=== PATIENT | male | born 1970 | race Caucasian/White ===

== ENCOUNTER → 2016-08-07 | Outpatient (CLI) | payer BC ==
[~2016-08-07] VITALS: Ht 182.9 cm; Wt 99.8 kg
[~2016-08-07] MED LIST: LIDOCAINE 2% INJ 100 MG/5 ML SDV (FOR ANES.) As Ordered ONE; NS 1,000 ML IV SCH; OMEP40CA2 PO; PROPOFOL 200 MG/20 ML VIAL As Ordered ONE; TELM1TAB12 PO
--- NOTE | 2016-08-07 11:16 | ROOR ---
Patient Name: Jakob Disla Procedure Date: 08/07/2016 10:59 AM Date of : 1970 Age: 46 Room: [facility] Gender: Male Note Status: Finalized Procedure: Upper GI endoscopy + Biopsies Indications: Heartburn, Esophageal reflux symptoms that persist despite appropriate therapy, Esophageal reflux symptoms that recur despite appropriate therapy, Failure to respond to medical treatment Providers: Nick Roberson MD Referring MD: DIOGO MARTINEZ DO Requesting Provider: Medicines: Monitored Anesthesia Care Complications: No immediate complications. Procedure: Pre-Anesthesia Assessment: - The heart rate, respiratory rate, oxygen saturations, blood pressure, adequacy of pulmonary ventilation, and response to care were monitored throughout the procedure. The Endoscope was introduced through the mouth, and advanced to the second part of duodenum. The upper GI endoscopy was accomplished without difficulty. The patient tolerated the procedure well. Findings: The Z-line was irregular and was found 40 cm from the incisors. Multiple biopsies were obtained with cold forceps for evaluation to rule out Mills's Esophagus randomly at the gastroesophageal junction. A medium-sized hiatal hernia was present. No other significant abnormalities were identified in a careful examination of the stomach. The exam of the duodenum was otherwise normal. Impression: - Z-line irregular, 40 cm from the incisors. - Medium-sized hiatal hernia. - Multiple biopsies were obtained at the gastroesophageal junction. - The examination was otherwise normal. Recommendation: - Patient has a contact number available for emergencies. The signs and symptoms of potential delayed complications were discussed with the patient. Return to normal activities tomorrow. Written discharge instructions were provided to the patient. - High fiber diet. - Discharge patient to home. - Continue present medications. - Await pathology results. - Telephone GI clinic for pathology results in 1 week. - Check Portal Online for Path Results.([email or web address]) - Return to referring physician. - The findings and recommendations were discussed with the patient's family. Nick Roberson MD Nick Roberson MD 08/07/2016 11:16:02 AM This report has been signed electronically. Number of Addenda: 0 Note Initiated On: 08/07/2016 10:59 AM Estimated Blood Loss: Estimated blood loss: none.
--- NOTE | 2016-08-07 11:40 | ROOR ---
Patient Name: Jakob Disla Procedure Date: 08/07/2016 11:00 AM Date of : 1970 Age: 46 Room: [facility] Gender: Male Note Status: Finalized Procedure: Colonoscopy to Cecum + Cold Snare Polypectomy + Hemoclip Indications: Colon cancer screening in patient at increased risk: Family history of 1st-degree relative with colon polyps, Colon cancer screening in patient at increased risk: Colorectal cancer in father Providers: Nick Roberson MD Referring MD: DIOGO MARTINEZ DO Requesting Provider: Medicines: Monitored Anesthesia Care Complications: No immediate complications. Procedure: Pre-Anesthesia Assessment: - The heart rate, respiratory rate, oxygen saturations, blood pressure, adequacy of pulmonary ventilation, and response to care were monitored throughout the procedure. The Colonoscope was introduced through the anus and advanced to the cecum, identified by appendiceal orifice and ileocecal valve. The colonoscopy was performed without difficulty. The patient tolerated the procedure well. The quality of the bowel preparation was excellent. Findings: The perianal and digital rectal examinations were normal. Non-bleeding internal hemorrhoids were found during retroflexion. The hemorrhoids were small and Grade I (internal hemorrhoids that do not prolapse). A small polyp was found at 20 cm proximal to the anus. The polyp was sessile. The polyp was removed with a cold snare. Resection and retrieval were complete. A medium polyp was found in the hepatic flexure. The polyp was sessile. The polyp was removed with a cold snare. Resection and retrieval were complete. To prevent bleeding after the polypectomy, one hemostatic clip was successfully placed (MR conditional). There was no bleeding at the end of the procedure. The exam was otherwise without abnormality on direct and retroflexion views. Impression: - Non-bleeding internal hemorrhoids. - One small polyp at 20 cm proximal to the anus, removed with a cold snare. Resected and retrieved. - One medium polyp at the hepatic flexure, removed with a cold snare. Resected and retrieved. Clip (MR conditional) was placed. - The examination was otherwise normal on direct and retroflexion views. - The exam was otherwise normal to the cecum. Recommendation: - Patient has a contact number available for emergencies. The signs and symptoms of potential delayed complications were discussed with the patient. Return to normal activities tomorrow. Written discharge instructions were provided to the patient. - High fiber diet. - Discharge patient to home. - Continue present medications. - Await pathology results. - Telephone GI clinic for pathology results in 1 week. - Repeat colonoscopy in 3 years for surveillance based on pathology results. - Return to referring physician. - The findings and recommendations were discussed with the patient's family. Nick Roberson MD Nick Roberson MD 08/07/2016 11:40:11 AM This report has been signed electronically. Number of Addenda: 0 Note Initiated On: 08/07/2016 11:00 AM Estimated Blood Loss: Estimated blood loss: none.
[2016-08-07 12:00] VITALS: BP 141/97
== END | disposition home or self-care (01) ==
LOC: M OPP 10:19
PROVIDERS: ATTEND Internal Medicine Gastroenterology
DX: Z12.11 Encounter for screening for malignant neoplasm of colon (principal); D12.5 Benign neoplasm of sigmoid colon; D12.3 Benign neoplasm of transverse colon; K64.0 First degree hemorrhoids; Z83.71 Family history of colonic polyps; Z80.0 Family history of malignant neoplasm of digestive organs; R12 Heartburn; K22.8 Other specified diseases of esophagus; K44.9 Diaphragmatic hernia without obstruction or gangrene; I10 Essential (primary) hypertension; R00.8 Other abnormalities of heart beat; M54.9 Dorsalgia, unspecified; Z86.79 Personal history of other diseases of the circulatory system; F17.210 Nicotine dependence, cigarettes, uncomplicated; Z79.899 Other long term (current) drug therapy; Z80.42 Family history of malignant neoplasm of prostate

== ENCOUNTER → 2016-08-18 | Outpatient (REF) | payer BC ==
[~2016-08-18] MED LIST changes: -LIDOCAINE 2% INJ 100 MG/5 ML SDV (FOR ANES.) As Ordered ONE; -NS 1,000 ML IV SCH; -PROPOFOL 200 MG/20 ML VIAL As Ordered ONE
[2016-08-18 18:42] LABS: BASO % 0.4 % (0.0-1.0); EOS # 0.1 K/mm3 (0.0-0.50); EOS % 2.2 % (0.0-3.0); LARGE UNSTAINED CELL # 0.4 K/mm3 (0.0-0.4); LARGE UNSTAINED CELL % 7.1 % (0.0-4.0); LYMPH # 1.9 K/mm3 (1.5-4.5); LYMPH % 28.3 % (24.0-44.0); MEAN CORPUSCULAR HEMOGLOBIN 29.8 pg (27.0-33.0); MEAN CORPUSCULAR HGB CONC 32.5 g/dl (32.0-36.5); MEAN CORPUSCULAR VOLUME 91.8 fl (80.0-96.0); MONO # 0.6 K/mm3 (0.0-0.8); MONO % 10.5 % (0.0-5.0); NEUTROPHILS # 2.8 K/mm3 (1.8-7.7); NEUTROPHILS % 51.6 % (36.0-66.0); PLATELET COUNT, AUTOMATED 275 k/mm3 (150-450); RED CELL DISTRIBUTION WIDTH 12.5 % (11.5-14.5); WHITE BLOOD COUNT 5.4 K/mm3 (4.0-10.0)
[2016-08-18 19:26] LABS: FREE T4 0.92 NG/DL (0.76-1.46)
== END ==
LOC: M SFHCCAPE 06:55
PROVIDERS: ATTEND Physician Assistant
DX: R79.89 Other specified abnormal findings of blood chemistry (principal)

== ENCOUNTER → 2016-12-24 | Outpatient (REF) | payer BC ==
[2016-12-24 19:10] LABS: ALBUMIN 3.8 GM/DL (3.2-5.2); ALBUMIN/GLOBULIN RATIO 1.23 (1.00-1.93); ALKALINE PHOSPHATASE 85 U/L (45-117); ALT/SGPT 31 U/L (12-78); ANION GAP 7 MEQ/L (8-16); AST/SGOT 10 U/L (15-37); BILIRUBIN,TOTAL 0.5 MG/DL (0.2-1.0); BLOOD UREA NITROGEN 20 MG/DL (7-18); CALCIUM LEVEL 9.1 MG/DL (8.5-10.1); CARBON DIOXIDE LEVEL 27 MEQ/L (21-32); CHLORIDE LEVEL 109 MEQ/L (98-107); CHOLESTEROL LEVEL 139 MG/DL (<200); FREE T4 0.86 NG/DL (0.76-1.46); GLOMERULAR FILTRATION RATE > 60.0 (>60); GLUCOSE, FASTING 96 MG/DL (70-105); POTASSIUM SERUM 4.5 MEQ/L (3.5-5.1); SODIUM LEVEL 143 MEQ/L (136-145); TOTAL PROTEIN 6.9 GM/DL (6.4-8.2); TRIGLYCERIDES LEVEL 186 MG/DL (<150)
[2016-12-24 21:10] LABS: ADD MANUAL DIFFER YES; MEAN CORPUSCULAR HEMOGLOBIN 31.9 pg (27.0-33.0); MEAN CORPUSCULAR HGB CONC 34.7 g/dl (32.0-36.5); MEAN CORPUSCULAR VOLUME 91.7 fl (80.0-96.0); PLATELET COUNT, AUTOMATED 277 k/mm3 (150-450); RED CELL DISTRIBUTION WIDTH 12.3 % (11.5-14.5); WHITE BLOOD COUNT 6.4 K/mm3 (4.0-10.0)
[2016-12-24 23:11] LABS: BASOPHILS 1 % (0-4); EOSINOPHILS 1 % (0-5)
== END ==
LOC: M SFHCCAPE 07:18
PROVIDERS: ATTEND Physician Assistant
DX: R94.6 Abnormal results of thyroid function studies (principal); I10 Essential (primary) hypertension; E78.1 Pure hyperglyceridemia

== ENCOUNTER → 2017-04-10 | Outpatient (CLI) | payer OTHER | LOC: M WUC 12:35 | DX: R93.7 Abnormal findings on diagnostic imaging of other parts of musculoskeletal system (principal) | CPT/HCPCS: 73564 ==

== ENCOUNTER → 2017-07-08 | Outpatient (CLI) | payer OTHER ==
[2017-07-08 16:45] LABS: BASO % 0.5 % (0.0-1.0); EOS # 0.1 10^3/uL (0.0-0.50); EOS % 1.5 % (0.0-3.0); HEMATOCRIT 47.4 % (42.0-52.0); HEMOGLOBIN 15.1 g/dl (13.5-17.5); IMMATURE GRANULOCYTE % 0.3 % (0-3.0); LYMPH # 2.9 10^3/uL (1.5-4.5); LYMPH % 32.6 % (24.0-44.0); MEAN CORPUSCULAR HEMOGLOBIN 29.2 pg (27.0-33.0); MEAN CORPUSCULAR HGB CONC 31.9 g/dl (32.0-36.5); MEAN CORPUSCULAR VOLUME 91.7 fl (80.0-96.0); MONO # 0.7 10^3/uL (0.0-0.8); MONO % 7.6 % (0.0-5.0); NEUTROPHILS # 5.1 10^3/uL (1.8-7.7); NEUTROPHILS % 57.5 % (36.0-66.0); PLATELET COUNT, AUTOMATED 321 10^3/uL (150-450); RED BLOOD COUNT 5.17 10^6/uL (4.30-6.10); RED CELL DISTRIBUTION WIDTH 12.2 % (11.5-14.5); WHITE BLOOD COUNT 8.9 10^3/uL (4.0-10.0)
[2017-07-08 17:36] LABS: ALBUMIN 4.2 GM/DL (3.2-5.2); ALBUMIN/GLOBULIN RATIO 1.11 (1.00-1.93); ALKALINE PHOSPHATASE 122 U/L (45-117); ALT/SGPT 107 U/L (12-78); ANION GAP 9 MEQ/L (8-16); AST/SGOT 32 U/L (7-37); BILIRUBIN,TOTAL 0.2 MG/DL (0.2-1.0); BLOOD UREA NITROGEN 22 MG/DL (7-18); CALCIUM LEVEL 8.7 MG/DL (8.5-10.1); CARBON DIOXIDE LEVEL 25 MEQ/L (21-32); CHLORIDE LEVEL 106 MEQ/L (98-107); CREATININE FOR GFR 0.75 MG/DL (0.70-1.30); GLOMERULAR FILTRATION RATE > 60.0 (>60); GLUCOSE, FASTING 71 MG/DL (70-100); LIPASE 96 U/L (73-393); POTASSIUM SERUM 4.5 MEQ/L (3.5-5.1); SODIUM LEVEL 140 MEQ/L (136-145)
== END ==
LOC: M WUC 10:49
DX: R19.7 Diarrhea, unspecified (principal); R14.0 Abdominal distension (gaseous)

== ENCOUNTER → 2017-08-09 | Outpatient (REF) | payer OTHER ==
[2017-08-09 18:04] LABS: ALBUMIN/GLOBULIN RATIO 1.14 (1.00-1.93); ALKALINE PHOSPHATASE 100 U/L (45-117); ALT/SGPT 42 U/L (12-78); ANION GAP 7 MEQ/L (8-16); AST/SGOT 14 U/L (7-37); BILIRUBIN,TOTAL 0.3 MG/DL (0.2-1.0); BLOOD UREA NITROGEN 23 MG/DL (7-18); CALCIUM LEVEL 8.9 MG/DL (8.5-10.1); CARBON DIOXIDE LEVEL 27 MEQ/L (21-32); CHLORIDE LEVEL 110 MEQ/L (98-107); CHOLESTEROL LEVEL 165 MG/DL (<200); CHOLESTEROL RISK RATIO 3.928 (<5); CREATININE FOR GFR 0.88 MG/DL (0.70-1.30); FREE T4 0.81 NG/DL (0.76-1.46); GLOMERULAR FILTRATION RATE > 60.0 (>60); GLUCOSE, FASTING 100 MG/DL (70-100); HDL CHOLESTEROL 42 MG/DL (>40); LDL CHOLESTEROL 82.6 MG/DL (<100); NON-HDL-C 123 MG/DL; POTASSIUM SERUM 4.6 MEQ/L (3.5-5.1); PSA SCREENING 1.02 NG/ML (< 4.0); SODIUM LEVEL 144 MEQ/L (136-145); TOTAL PROTEIN 7.5 GM/DL (6.4-8.2); TRIGLYCERIDES LEVEL 202 MG/DL (<150)
[2017-08-09 18:56] LABS: BASO % 0.5 % (0.0-1.0); EOS # 0.2 10^3/uL (0.0-0.50); EOS % 3.3 % (0.0-3.0); HEMATOCRIT 44.7 % (42.0-52.0); HEMOGLOBIN 14.3 g/dl (13.5-17.5); IMMATURE GRANULOCYTE % 0.2 % (0-3.0); LYMPH % 34.8 % (24.0-44.0); MEAN CORPUSCULAR HEMOGLOBIN 29.8 pg (27.0-33.0); MEAN CORPUSCULAR VOLUME 93.1 fl (80.0-96.0); MONO # 0.4 10^3/uL (0.0-0.8); MONO % 7.5 % (0.0-5.0); NEUTROPHILS # 3.1 10^3/uL (1.8-7.7); NEUTROPHILS % 53.7 % (36.0-66.0); PLATELET COUNT, AUTOMATED 261 10^3/uL (150-450); RED CELL DISTRIBUTION WIDTH 12.6 % (11.5-14.5); WHITE BLOOD COUNT 5.8 10^3/uL (4.0-10.0)
== END ==
LOC: M SFHCCAPE 07:26
DX: E78.1 Pure hyperglyceridemia (principal); I10 Essential (primary) hypertension; Z12.5 Encounter for screening for malignant neoplasm of prostate
CPT/HCPCS: 84443

== ENCOUNTER → 2017-11-11 | Outpatient (REF) | payer OTHER ==
[2017-11-11 17:32] LABS: FREE T4 0.79 NG/DL (0.76-1.46)
== END ==
LOC: M SFHCCAPE 06:58
DX: R94.6 Abnormal results of thyroid function studies (principal)

== ENCOUNTER → 2018-04-14 | Outpatient (REF) | payer OTHER ==
[~2018-04-14] MED LIST changes: -TELM1TAB12 PO; +TELM1TAB33 PO
[2018-04-14 16:42] LABS: BASO % 0.6 % (0.0-1.0); EOS # 0.2 10^3/uL (0.0-0.50); EOS % 2.9 % (0.0-3.0); HEMOGLOBIN 13.5 g/dl (13.5-17.5); LYMPH # 2.1 10^3/uL (1.5-4.5); LYMPH % 30.8 % (24.0-44.0); MEAN CORPUSCULAR HEMOGLOBIN 30.1 pg (27.0-33.0); MEAN CORPUSCULAR HGB CONC 32.9 g/dl (32.0-36.5); MEAN CORPUSCULAR VOLUME 91.3 fl (80.0-96.0); MONO # 0.5 10^3/uL (0.0-0.8); MONO % 7.4 % (0.0-5.0); NEUTROPHILS % 57.9 % (36.0-66.0); PLATELET COUNT, AUTOMATED 262 10^3/uL (150-450); RED BLOOD COUNT 4.49 10^6/uL (4.30-6.10); WHITE BLOOD COUNT 6.9 10^3/uL (4.0-10.0)
[2018-04-14 16:54] LABS: ALBUMIN 3.7 GM/DL (3.2-5.2); ALT/SGPT 36 U/L (12-78); BILIRUBIN,TOTAL 0.3 MG/DL (0.2-1.0); BLOOD UREA NITROGEN 18 MG/DL (7-18); CALCIUM LEVEL 8.7 MG/DL (8.5-10.1); CARBON DIOXIDE LEVEL 26 MEQ/L (21-32); CHLORIDE LEVEL 106 MEQ/L (98-107); CHOLESTEROL LEVEL 155 MG/DL (<200); CHOLESTEROL RISK RATIO 4.078 (<5); CREATININE FOR GFR 0.83 MG/DL (0.70-1.30); FREE T4 0.84 NG/DL (0.76-1.46); GLOMERULAR FILTRATION RATE > 60.0 (>60); GLUCOSE, FASTING 106 MG/DL (70-100); HDL CHOLESTEROL 38 MG/DL (>40); LDL CHOLESTEROL 82 MG/DL (<100); NON-HDL-C 117 MG/DL; POTASSIUM SERUM 4.3 MEQ/L (3.5-5.1); SODIUM LEVEL 140 MEQ/L (136-145); TOTAL PROTEIN 6.8 GM/DL (6.4-8.2); TRIGLYCERIDES LEVEL 175 MG/DL (<150)
[2018-04-14 17:02] LABS: HEMOGLOBIN A1c 5.6 %
== END ==
LOC: M SFHCCAPE 07:13
PROVIDERS: ATTEND Physician Assistant
DX: I10 Essential (primary) hypertension (principal); R94.6 Abnormal results of thyroid function studies

== ENCOUNTER → 2018-10-20 | Outpatient (REF) | payer OTHER ==
[2018-10-20 17:30] LABS: ALT/SGPT 34 U/L (12-78); BILIRUBIN,TOTAL 0.3 MG/DL (0.2-1.0); BLOOD UREA NITROGEN 20 MG/DL (7-18); CARBON DIOXIDE LEVEL 26 MEQ/L (21-32); CHLORIDE LEVEL 110 MEQ/L (98-107); CREATININE FOR GFR 0.91 MG/DL (0.70-1.30); GLOMERULAR FILTRATION RATE > 60.0 (>60); GLUCOSE, FASTING 106 MG/DL (70-100); POTASSIUM SERUM 4.2 MEQ/L (3.5-5.1); SODIUM LEVEL 143 MEQ/L (136-145); TRIGLYCERIDES LEVEL 152 MG/DL (<150)
[2018-10-20 17:31] LABS: ALBUMIN 3.8 GM/DL (3.2-5.2); CHOLESTEROL LEVEL 153 MG/DL (<200); CHOLESTEROL RISK RATIO 3.923 (<5); FREE T4 0.77 NG/DL (0.76-1.46); HDL CHOLESTEROL 39 MG/DL (>40); LDL CHOLESTEROL 84 MG/DL (<100); NON-HDL-C 114 MG/DL
[2018-10-20 18:11] LABS: HEMOGLOBIN A1c 5.6 %
== END ==
LOC: M SFHCCAPE 07:36
PROVIDERS: ATTEND Physician Assistant
DX: I10 Essential (primary) hypertension (principal); E78.1 Pure hyperglyceridemia; E03.9 Hypothyroidism, unspecified; R73.01 Impaired fasting glucose

== ENCOUNTER → 2019-05-09 | Outpatient (REF) | payer BC ==
[~2019-05-09] MED LIST changes: -OMEP40CA2 PO; +OMEP40CA97 PO
[2019-05-09 16:57] LABS: BASO % 0.4 % (0.0-1.0); EOS # 0.2 10^3/uL (0.0-0.5); EOS % 4.3 % (0.0-3.0); HEMATOCRIT 43.8 % (42.0-52.0); HEMOGLOBIN 13.4 g/dl (13.5-17.5); LYMPH # 1.8 10^3/uL (1.5-5.0); LYMPH % 33.7 % (24.0-44.0); MEAN CORPUSCULAR HEMOGLOBIN 28.7 pg (27.0-33.0); MEAN CORPUSCULAR HGB CONC 30.6 g/dl (32.0-36.5); MEAN CORPUSCULAR VOLUME 93.8 fl (80.0-96.0); MONO # 0.4 10^3/uL (0.0-0.8); MONO % 7.6 % (0.0-5.0); NEUTROPHILS # 2.9 10^3/uL (1.5-8.5); NEUTROPHILS % 53.8 % (36.0-66.0); PLATELET COUNT, AUTOMATED 272 10^3/uL (150-450); RED BLOOD COUNT 4.67 10^6/uL (4.30-6.10); WHITE BLOOD COUNT 5.4 10^3/uL (4.0-10.0)
[2019-05-09 17:12] LABS: ALBUMIN 3.8 GM/DL (3.2-5.2); ALT/SGPT 30 U/L (12-78); BILIRUBIN,TOTAL 0.3 MG/DL (0.2-1.0); BLOOD UREA NITROGEN 20 MG/DL (7-18); CARBON DIOXIDE LEVEL 29 MEQ/L (21-32); CHLORIDE LEVEL 107 MEQ/L (98-107); CHOLESTEROL LEVEL 180 MG/DL (<200); CHOLESTEROL RISK RATIO 4.736 (<5); CREATININE FOR GFR 0.95 MG/DL (0.70-1.30); FREE T4 0.85 NG/DL (0.76-1.46); GLOMERULAR FILTRATION RATE > 60.0 (>56); GLUCOSE, FASTING 104 MG/DL (70-100); HDL CHOLESTEROL 38 MG/DL (>40); LDL CHOLESTEROL 109 MG/DL (<100); NON-HDL-C 142 MG/DL; POTASSIUM SERUM 4.8 MEQ/L (3.5-5.1); SODIUM LEVEL 141 MEQ/L (136-145); TOTAL PROTEIN 6.9 GM/DL (6.4-8.2); TRIGLYCERIDES LEVEL 165 MG/DL (<150)
[2019-05-09 17:16] LABS: HEMOGLOBIN A1c 5.8 %
== END ==
LOC: M SFHCCAPE 07:03
PROVIDERS: ATTEND Physician Assistant
DX: Z12.5 Encounter for screening for malignant neoplasm of prostate (principal); I10 Essential (primary) hypertension; R94.6 Abnormal results of thyroid function studies; R73.01 Impaired fasting glucose
CPT/HCPCS: 80053; 80061; 83036; 84439; 84443; 85025; G0103

== ENCOUNTER → 2021-02-05 | Outpatient (REF) | payer BC ==
[~2021-02-05] MED LIST changes: +OMEP40CA4 PO; -OMEP40CA97 PO
[2021-02-05 15:54] LABS: BASO # 0.1 10^3/uL (0.0-0.2); BASO % 0.7 % (0.0-1.0); EOS # 0.2 10^3/uL (0.0-0.5); EOS % 2.4 % (0.0-3.0); HEMATOCRIT 42.4 % (42.0-52.0); HEMOGLOBIN 13.9 g/dl (13.5-17.5); LYMPH # 2.2 10^3/uL (1.5-5.0); LYMPH % 29.3 % (24.0-44.0); MEAN CORPUSCULAR HEMOGLOBIN 30.2 pg (27.0-33.0); MEAN CORPUSCULAR HGB CONC 32.8 g/dl (32.0-36.5); MONO # 0.5 10^3/uL (0.0-0.8); MONO % 7.3 % (2.0-8.0); NEUTROPHILS # 4.4 10^3/uL (1.5-8.5); NEUTROPHILS % 59.9 % (36.0-66.0); PLATELET COUNT, AUTOMATED 255 10^3/uL (150-450); RED BLOOD COUNT 4.61 10^6/uL (4.30-6.10); WHITE BLOOD COUNT 7.4 10^3/uL (4.0-10.0)
[2021-02-05 16:27] LABS: HEMOGLOBIN A1c 5.6 %
[2021-02-05 16:36] LABS: ALBUMIN 3.7 GM/DL (3.2-5.2); ALT/SGPT 37 U/L (12-78); BILIRUBIN,TOTAL 0.4 MG/DL (0.2-1.0); BLOOD UREA NITROGEN 19 MG/DL (7-18); CALCIUM LEVEL 9.4 MG/DL (8.5-10.1); CARBON DIOXIDE LEVEL 29 MEQ/L (21-32); CHLORIDE LEVEL 108 MEQ/L (98-107); CHOLESTEROL LEVEL 179 MG/DL (<200); CREATININE FOR GFR 0.88 MG/DL (0.70-1.30); GLOMERULAR FILTRATION RATE > 60.0 (>56); GLUCOSE, FASTING 112 MG/DL (70-100); HDL CHOLESTEROL 38 MG/DL (>40); LDL CHOLESTEROL 109 MG/DL (<100); NON-HDL-C 141 MG/DL; POTASSIUM SERUM 4.7 MEQ/L (3.5-5.1); SODIUM LEVEL 141 MEQ/L (136-145); TRIGLYCERIDES LEVEL 160 MG/DL (<150)
== END ==
LOC: M SFHCCAPE 07:25
PROVIDERS: ATTEND Physician Assistant
DX: E78.1 Pure hyperglyceridemia (principal); E03.9 Hypothyroidism, unspecified; Z12.5 Encounter for screening for malignant neoplasm of prostate; R73.01 Impaired fasting glucose
CPT/HCPCS: 80053; 80061; 83036; 84443; 85025; G0103

== ENCOUNTER → 2021-06-02 | Outpatient (REF) | payer BC ==
[2021-06-02 18:30] LABS: FREE T4 0.86 NG/DL (0.76-1.46); THYROID STIMULATING HORMONE 2.6 uIU/ML (0.358-3.740)
== END ==
LOC: M SFHCCAPE 07:37
PROVIDERS: ATTEND Physician Assistant
DX: E03.9 Hypothyroidism, unspecified (principal)

== ENCOUNTER → 2021-07-31 | Outpatient (CLI) | payer BC ==
[~2021-07-31] MED LIST changes: +ASPI81TA26 PO; +LEVO25TA5 PO; +VITMTA PO
== END ==
LOC: M LABSMTC 11:36
PROVIDERS: ATTEND Anesthesiology
DX: Z01.812 Encounter for preprocedural laboratory examination (principal); Z20.822 Contact with and (suspected) exposure to COVID-19

== ENCOUNTER 2021-08-05 06:47 | Day surgery (SDC) | payer BC ==
[~2021-08-05] VITALS: Ht 185.4 cm; Wt 107.0 kg
[~2021-08-05 06:47] MED LIST changes: +NS 1,000 ML IV ONE
[2021-08-05] MEDS ORDERED: propofoL 200 MG/20 ML VIAL As Ordered ONE (09:09)
[2021-08-05] MEDS ORDERED: LIDOCAINE 2% 100MG/5ML SDV (FOR ANES.) As Ordered ONE (09:09)
[2021-08-05 09:10] VITALS: BP 110/71
== END 2021-08-05 09:19 | disposition home or self-care (01) ==
LOC: M OPP 06:47
PROVIDERS: ATTEND Internal Medicine Gastroenterology
DX: Z12.11 Encounter for screening for malignant neoplasm of colon (principal); Z86.010 Personal history of colon polyps; Z80.0 Family history of malignant neoplasm of digestive organs; D12.6 Benign neoplasm of colon, unspecified; K57.30 Diverticulosis of large intestine without perforation or abscess without bleeding; K64.8 Other hemorrhoids; E03.9 Hypothyroidism, unspecified; Z79.82 Long term (current) use of aspirin; Z79.899 Other long term (current) drug therapy; F17.210 Nicotine dependence, cigarettes, uncomplicated; Z86.79 Personal history of other diseases of the circulatory system

== ENCOUNTER → 2021-08-11 | Outpatient (CLI) | payer BC ==
[~2021-08-11] MED LIST changes: -NS 1,000 ML IV ONE
[2021-08-11 17:50] LABS: APPEARANCE, URINE CLEAR (CLEAR); BACTERIA, URINE AUTO NEGATIVE (NEGATIVE); BILIRUBIN, URINE AUTO NEGATIVE (NEGATIVE); BLOOD, URINE BLOOD NEGATIVE (NEGATIVE); COLOR, URINE YELLOW (YELLOW); GLUCOSE, URINE (UA) AUTO NEGATIVE (NEGATIVE); KETONE, URINE AUTO NEGATIVE (NEGATIVE); LEUKOCYTE ESTERASE, URINE AUTO NEGATIVE (NEGATIVE); NITRITE, URINE AUTO NEGATIVE (NEGATIVE); PROTEIN, URINE AUTO NEGATIVE (NEGATIVE); RBC, URINE AUTO 1 /HPF (0-3); SPECIFIC GRAVITY URINE AUTO 1.011 (1.002-1.035); SQUAMOUS EPITHELIAL CELL UR AU 0 /HPF (0-6); UROBILINOGEN, URINE AUTO 0.2 mg/dL (0.0-2.0); WBC, URINE AUTO 0 /HPF (0-3)
[2021-08-11 17:51] LABS: BASO # 0.1 10^3/uL (0.0-0.2); BASO % 0.5 % (0.0-1.0); EOS # 0.3 10^3/uL (0.0-0.5); EOS % 2.7 % (0.0-3.0); HEMATOCRIT 33.8 % (42.0-52.0); HEMOGLOBIN 10.3 g/dl (13.5-17.5); LYMPH # 2.5 10^3/uL (1.5-5.0); LYMPH % 27.4 % (24.0-44.0); MEAN CORPUSCULAR HEMOGLOBIN 26.5 pg (27.0-33.0); MEAN CORPUSCULAR HGB CONC 30.5 g/dl (32.0-36.5); MEAN CORPUSCULAR VOLUME 87.1 fl (80.0-96.0); MONO # 0.7 10^3/uL (0.0-0.8); NEUTROPHILS # 5.7 10^3/uL (1.5-8.5); NEUTROPHILS % 61.6 % (36.0-66.0); PLATELET COUNT, AUTOMATED 478 10^3/uL (150-450); RED BLOOD COUNT 3.88 10^6/uL (4.30-6.10); WHITE BLOOD COUNT 9.2 10^3/uL (4.0-10.0)
[2021-08-11 18:26] LABS: ALBUMIN 2.9 GM/DL (3.2-5.2); ALT/SGPT 28 U/L (12-78); BILIRUBIN,TOTAL 0.3 MG/DL (0.2-1.0); BLOOD UREA NITROGEN 13 MG/DL (7-18); CALCIUM LEVEL 9.6 MG/DL (8.5-10.1); CARBON DIOXIDE LEVEL 29 MEQ/L (21-32); CHLORIDE LEVEL 103 MEQ/L (98-107); CREATININE FOR GFR 0.77 MG/DL (0.70-1.30); FREE T4 0.99 NG/DL (0.76-1.46); GLOMERULAR FILTRATION RATE > 60.0 (>56); GLUCOSE, FASTING 90 MG/DL (70-100); POTASSIUM SERUM 4.3 MEQ/L (3.5-5.1); SODIUM LEVEL 137 MEQ/L (136-145); TOTAL PROTEIN 7.2 GM/DL (6.4-8.2)
== END ==
LOC: M RAD 17:02
PROVIDERS: ATTEND Physician Assistant
DX: R51.9 Headache, unspecified (principal)

== ENCOUNTER → 2021-09-05 | Outpatient (CLI) | payer BC | LOC: M PLARAD 09:11 | PROVIDERS: ATTEND Physician Assistant | DX: R51.9 Headache, unspecified (principal) ==

== ENCOUNTER → 2021-12-09 | Outpatient (REF) | payer BC ==
[2021-12-09 17:57] LABS: BASO % 0.5 % (0.0-1.0); EOS # 0.2 10^3/uL (0.0-0.5); EOS % 2.4 % (0.0-3.0); HEMATOCRIT 43.1 % (42.0-52.0); HEMOGLOBIN 13.2 g/dl (13.5-17.5); LYMPH # 2.3 10^3/uL (1.5-5.0); LYMPH % 26.7 % (24.0-44.0); MEAN CORPUSCULAR HEMOGLOBIN 26.6 pg (27.0-33.0); MEAN CORPUSCULAR HGB CONC 30.6 g/dl (32.0-36.5); MEAN CORPUSCULAR VOLUME 86.7 fl (80.0-96.0); MONO # 0.7 10^3/uL (0.0-0.8); MONO % 7.9 % (2.0-8.0); NEUTROPHILS # 5.4 10^3/uL (1.5-8.5); NEUTROPHILS % 62.2 % (36.0-66.0); PLATELET COUNT, AUTOMATED 362 10^3/uL (150-450); RED BLOOD COUNT 4.97 10^6/uL (4.30-6.10); WHITE BLOOD COUNT 8.7 10^3/uL (4.0-10.0)
[2021-12-09 19:15] LABS: ALBUMIN 3.6 GM/DL (3.2-5.2); ALT/SGPT 20 U/L (12-78); BILIRUBIN,TOTAL 0.2 MG/DL (0.2-1.0); BLOOD UREA NITROGEN 22 MG/DL (7-18); CALCIUM LEVEL 9.8 MG/DL (8.5-10.1); CARBON DIOXIDE LEVEL 27 MEQ/L (21-32); CHLORIDE LEVEL 106 MEQ/L (98-107); CHOLESTEROL LEVEL 171 MG/DL (<200); CHOLESTEROL RISK RATIO 3.489 (<5); CREATININE FOR GFR 1.02 MG/DL (0.70-1.30); GLOMERULAR FILTRATION RATE > 60.0 (>56); GLUCOSE, FASTING 103 MG/DL (70-100); HDL CHOLESTEROL 49 MG/DL (>40); LDL CHOLESTEROL 94 MG/DL (<100); NON-HDL-C 122 MG/DL; POTASSIUM SERUM 4.7 MEQ/L (3.5-5.1); SODIUM LEVEL 139 MEQ/L (136-145); TOTAL PROTEIN 7.4 GM/DL (6.4-8.2); TRIGLYCERIDES LEVEL 138 MG/DL (<150)
[2021-12-09 19:47] LABS: HEMOGLOBIN A1c 5.7 %
== END ==
LOC: M SFHCCAPE 07:17
PROVIDERS: ATTEND Physician Assistant
DX: E03.9 Hypothyroidism, unspecified (principal)

== ENCOUNTER → 2022-02-19 | Outpatient (REF) | payer BC ==
[2022-02-19 21:36] LABS: FREE T4 1.26 NG/DL (0.89-1.76); THYROID STIMULATING HORMONE 4.431 uIU/ML (0.55-4.78)
== END ==
LOC: M SFHCCAPE 07:16
PROVIDERS: ATTEND Physician Assistant
DX: E03.9 Hypothyroidism, unspecified (principal)

== ENCOUNTER → 2022-07-16 | Outpatient (REF) | payer BC ==
[2022-07-16 17:46] LABS: BASO # 0.1 10^3/uL (0.0-0.2); BASO % 0.6 % (0.0-1.0); EOS # 0.3 10^3/uL (0.0-0.5); EOS % 3.1 % (0.0-3.0); HEMATOCRIT 42.7 % (42.0-52.0); HEMOGLOBIN 13.6 g/dl (13.5-17.5); LYMPH # 2.8 10^3/uL (1.5-5.0); LYMPH % 31.8 % (24.0-44.0); MEAN CORPUSCULAR HEMOGLOBIN 28.8 pg (27.0-33.0); MEAN CORPUSCULAR HGB CONC 31.9 g/dl (32.0-36.5); MEAN CORPUSCULAR VOLUME 90.3 fl (80.0-96.0); MONO # 0.6 10^3/uL (0.0-0.8); MONO % 7.1 % (2.0-8.0); NEUTROPHILS % 56.8 % (36.0-66.0); PLATELET COUNT, AUTOMATED 361 10^3/uL (150-450); RED BLOOD COUNT 4.73 10^6/uL (4.30-6.10); WHITE BLOOD COUNT 8.8 10^3/uL (4.0-10.0)
[2022-07-16 17:55] LABS: FERRITIN 125.8 NG/ML (10.5-307.3); THYROID STIMULATING HORMONE 3.619 uIU/ML (0.55-4.78); TOTAL IRON BINDING CAPACITY 319 UG/DL (250-425)
[2022-07-16 17:56] LABS: FREE T4 1.02 NG/DL (0.89-1.76); VITAMIN B12 LEVEL 688 PG/ML (211-911)
[2022-07-16 17:57] LABS: ALBUMIN 3.6 G/DL (3.2-5.2); ALKALINE PHOSPHATASE 110 U/L (46-116); ALT/SGPT 27 U/L (7.0-40); AST/SGOT 15 U/L (<34); BILIRUBIN,TOTAL 0.4 MG/DL (0.3-1.2); BLOOD UREA NITROGEN 22 MG/DL (9-23); CALCIUM LEVEL 9.4 MG/DL (8.5-10.1); CARBON DIOXIDE LEVEL 26 MMOL/L (20-31); CHLORIDE LEVEL 105 MMOL/L (98-107); CHOLESTEROL LEVEL 157 MG/DL (<200); CHOLESTEROL RISK RATIO 4.51 (<5); CREATININE FOR GFR 0.84 MG/DL (0.70-1.30); GLOMERULAR FILTRATION RATE > 60.0 (>56); GLUCOSE, FASTING 120 MG/DL (60-100); HDL CHOLESTEROL 34.8 MG/DL (>40); IRON (FE) 40 UG/DL (65-175); NON-HDL-C 122.2 MG/DL; PERCENT SATURATION 12.5 % (19.7-50.0); POTASSIUM SERUM 4.7 MMOL/L (3.5-5.1); SODIUM LEVEL 138 MMOL/L (136-145); TRIGLYCERIDES LEVEL 191 MG/DL (<150)
[2022-07-16 17:58] LABS: HEMOGLOBIN A1c 5.7 % (4.0-6.0)
[2022-07-16 18:01] LABS: FOLATE 23.4 NG/ML (>5.4)
[2022-07-21 21:06] LABS: HOMOCYST(E)INE SERUM 10.2 umol/L (0.0-14.5); Methylmalonic Acid 222 nmol/L (0-378)
== END ==
LOC: M SFHCCAPE 07:13
PROVIDERS: ATTEND Physician Assistant
DX: R73.01 Impaired fasting glucose (principal); E03.9 Hypothyroidism, unspecified; E78.1 Pure hyperglyceridemia

== ENCOUNTER → 2023-01-21 | Outpatient (REF) | payer BC | LOC: M SFHCCAPE 07:11 | PROVIDERS: ATTEND Physician Assistant Medical | DX: I10 Essential (primary) hypertension (principal); E03.9 Hypothyroidism, unspecified; Z12.5 Encounter for screening for malignant neoplasm of prostate ==

== ENCOUNTER → 2024-02-17 | Outpatient (REF) | payer BC ==
[2024-02-17 17:15] LABS: BASO % 0.5 % (0.0-1.0); EOS # 0.1 10^3/uL (0.0-0.5); EOS % 2.2 % (0.0-3.0); HEMOGLOBIN 14.4 g/dl (13.5-17.5); LYMPH # 1.6 10^3/uL (1.5-5.0); LYMPH % 28.2 % (24.0-44.0); MEAN CORPUSCULAR HEMOGLOBIN 29.9 pg (27.0-33.0); MEAN CORPUSCULAR HGB CONC 32.7 g/dl (32.0-36.5); MEAN CORPUSCULAR VOLUME 91.3 fl (80.0-96.0); MONO # 0.4 10^3/uL (0.0-0.8); MONO % 7.8 % (2.0-8.0); NEUTROPHILS # 3.4 10^3/uL (1.5-8.5); NEUTROPHILS % 61.1 % (36.0-66.0); PLATELET COUNT, AUTOMATED 254 10^3/uL (150-450); RED BLOOD COUNT 4.82 10^6/uL (4.30-6.10); WHITE BLOOD COUNT 5.5 10^3/uL (4.0-10.0)
[2024-02-17 17:41] LABS: ALBUMIN 3.8 G/DL (3.2-5.2); ALKALINE PHOSPHATASE 89 U/L (40-129); ALT/SGPT 24 U/L (7.0-40); AST/SGOT 10 U/L (<34); BILIRUBIN,TOTAL 0.4 MG/DL (0.3-1.2); BLOOD UREA NITROGEN 16 MG/DL (9-23); CALCIUM LEVEL 9.8 MG/DL (8.5-10.1); CARBON DIOXIDE LEVEL 27 MMOL/L (20-31); CHLORIDE LEVEL 106 MMOL/L (98-107); CHOLESTEROL LEVEL 165 MG/DL (<200); CHOLESTEROL RISK RATIO 4.29 (<5); CREATININE FOR GFR 0.79 MG/DL (0.70-1.30); GLOMERULAR FILTRATION RATE > 60.0 (>56); GLUCOSE, FASTING 110 MG/DL (60-100); HDL CHOLESTEROL 38.4 MG/DL (>40); NON-HDL-C 126.6 MG/DL; SODIUM LEVEL 140 MMOL/L (136-145); TOTAL PROTEIN 6.8 G/DL (5.7-8.2); TRIGLYCERIDES LEVEL 143 MG/DL (<150)
[2024-02-17 17:43] LABS: FREE T4 1.34 NG/DL (0.89-1.76); THYROID STIMULATING HORMONE 3.493 uIU/ML (0.55-4.78)
[2024-02-17 18:14] LABS: HEMOGLOBIN A1c 5.5 % (4.0-6.0)
== END ==
LOC: M SFHCCAPE 07:24
PROVIDERS: ATTEND Physician Assistant Medical
DX: E03.9 Hypothyroidism, unspecified (principal); I10 Essential (primary) hypertension; E78.1 Pure hyperglyceridemia; R73.01 Impaired fasting glucose

== ENCOUNTER → 2024-08-16 | Outpatient (REF) | payer OTHER ==
[2024-08-16 17:54] LABS: PSA SCREENING 1.82 NG/ML (< 4.00)
[2024-08-16 17:55] LABS: ALBUMIN 3.8 G/DL (3.2-5.2); ALKALINE PHOSPHATASE 97 U/L (40-129); ALT/SGPT 38 U/L (7.0-40); AST/SGOT 22 U/L (<34); BILIRUBIN,TOTAL 0.4 MG/DL (0.3-1.2); BLOOD UREA NITROGEN 19 MG/DL (9-23); CALCIUM LEVEL 9.3 MG/DL (8.5-10.1); CARBON DIOXIDE LEVEL 28 MMOL/L (20-31); CHLORIDE LEVEL 107 MMOL/L (98-107); GLOMERULAR FILTRATION RATE > 90.0 (>56); GLUCOSE, FASTING 114 MG/DL (60-100); POTASSIUM SERUM 4.4 MMOL/L (3.5-5.1); SODIUM LEVEL 143 MMOL/L (136-145); TOTAL PROTEIN 6.9 G/DL (5.7-8.2)
[2024-08-16 17:58] LABS: FREE T4 1.13 NG/DL (0.89-1.76); THYROID STIMULATING HORMONE 3.596 uIU/ML (0.55-4.78)
== END ==
LOC: M SFHCCAPE 08:00
PROVIDERS: ATTEND Physician Assistant Medical
DX: Z00.00 Encounter for general adult medical examination without abnormal findings (principal); E03.9 Hypothyroidism, unspecified; Z12.5 Encounter for screening for malignant neoplasm of prostate
CPT/HCPCS: 80053; 84439; 84443; G0103

== ENCOUNTER → 2024-09-05 | Outpatient (REF) | payer OTHER ==
[2024-09-05 18:19] LABS: MAGNESIUM LEVEL 2.1 MG/DL (1.8-2.4)
[2024-09-05 18:25] LABS: HEMOGLOBIN A1c 5.4 % (4.0-6.0)
[2024-09-10 15:47] LABS: LYME TOTAL ANTIBODY CIA <= 0.90 Index (<=0.90)
== END ==
LOC: M SFHCCAPE 07:26
PROVIDERS: ATTEND Physician Assistant Medical
DX: R20.2 Paresthesia of skin (principal)

== ENCOUNTER → 2024-10-11 | Outpatient (REF) | payer OTHER ==
[2024-10-11 18:29] LABS: BASO # 0.1 10^3/uL (0.0-0.2); BASO % 0.9 % (0.0-1.0); EOS # 0.2 10^3/uL (0.0-0.5); EOS % 3.0 % (0.0-3.0); LYMPH # 2.0 10^3/uL (1.5-5.0); LYMPH % 25.2 % (24.0-44.0); MONO # 0.5 10^3/uL (0.0-0.8); MONO % 6.7 % (2.0-8.0); NEUTROPHILS # 5.1 10^3/uL (1.5-8.5); NEUTROPHILS % 63.6 % (36.0-66.0); PLATELET COUNT, AUTOMATED 248 10^3/uL (150-450)
[2024-10-11 18:38] LABS: ALT/SGPT 32 U/L (7.0-40); AST/SGOT 19 U/L (<34); CALCIUM LEVEL 9.3 MG/DL (8.5-10.1); CARBON DIOXIDE LEVEL 27 MMOL/L (20-31); CHLORIDE LEVEL 104 MMOL/L (98-107); CREATININE FOR GFR 0.71 MG/DL (0.70-1.30); GLOMERULAR FILTRATION RATE > 90.0 (>56); POTASSIUM SERUM 4.5 MMOL/L (3.5-5.1); SODIUM LEVEL 140 MMOL/L (136-145)
[2024-10-11 18:40] LABS: FREE T4 1.22 NG/DL (0.89-1.76); VITAMIN B12 LEVEL 768 PG/ML (211-911)
[2024-10-11 19:19] LABS: ERYTHROCYTE SEDIMENTATION RATE 15 mm/hr (0-20)
[2024-10-11 20:41] LABS: ESTIMATED AVERAGE GLUCOSE 120.0 MG/DL (60-110)
[2024-10-13 08:14] LABS: T P ELECTROPHORESIS SO 6.7 g/dL (6.1-8.1)
[2024-10-17 03:07] LABS: VITAMIN B1 LEVEL WHOLE BLOOD 142 nmol/L (78-185)
[2024-10-17 03:22] LABS: VITAMIN E(ALPHA TOCOPHEROL) 15.5 mg/L (5.7-19.9); VITAMIN E(GAMMA TOCOPHEROL) 1.4 mg/L (<=4.3)
[2024-10-17 07:47] LABS: ALBUMIN SPEP 4.0 g/dL (3.8-4.8); ALPHA-1-GLOBULINS SO 0.2 g/dL (0.2-0.3); ALPHA-2-GLOBULINS SO 0.7 g/dL (0.5-0.9); BETA 2 GLOBULIN 0.4 g/dL (0.2-0.5); BETA-GLOBULIN SO 0.5 g/dL (0.4-0.6); GAMMA GLOBULINS SO 0.9 g/dL (0.8-1.7)
[2024-10-18 12:56] LABS: VITAMIN B6,PYRIDOXAL PHOSPHATE 41.8 ng/mL (2.1-21.7)
== END ==
LOC: M LABDRWCV 17:18
PROVIDERS: ATTEND Psychiatry & Neurology Neurology
DX: E11.9 Type 2 diabetes mellitus without complications (principal); E53.8 Deficiency of other specified B group vitamins; E07.9 Disorder of thyroid, unspecified; G62.9 Polyneuropathy, unspecified

== ENCOUNTER → 2024-10-11 | Outpatient (REF) | payer OTHER ==
[2024-10-11 18:37] LABS: CALCIUM LEVEL 9.3 MG/DL (8.5-10.1); CARBON DIOXIDE LEVEL 26 MMOL/L (20-31); CHLORIDE LEVEL 104 MMOL/L (98-107); CREATININE FOR GFR 0.70 MG/DL (0.70-1.30); GLOMERULAR FILTRATION RATE > 90.0 (>56); MAGNESIUM LEVEL 2.0 MG/DL (1.8-2.4); PHOSPHORUS LEVEL 4.3 MG/DL (2.5-4.9); POTASSIUM SERUM 4.5 MMOL/L (3.5-5.1); SODIUM LEVEL 141 MMOL/L (136-145)
== END ==
LOC: M LABDRWCV 17:15 → M LABDRAWC 17:15
PROVIDERS: ATTEND Registered Nurse
DX: I10 Essential (primary) hypertension (principal)

== ENCOUNTER → 2024-10-24 | Outpatient (CLI) | payer BC, OTHER | LOC: M CARPUL 09:48 | PROVIDERS: ATTEND Registered Nurse | DX: R94.31 Abnormal electrocardiogram [ECG] [EKG] (principal) ==

== ENCOUNTER 2024-12-13 08:31 | Day surgery (SDC) | payer OTHER ==
[~2024-12-13] VITALS: Ht 185.4 cm; Wt 115.7 kg
[~2024-12-13 08:31] MED LIST changes: +CHLO125TA PO; +GABA-1171 PO; +LEVO50TA5 PO; +MULTTAB61 PO; +SPIR-10 PO; +TELM1TAB37 PO
[2024-12-13] MEDS: LR 1,000 ML IV SCH (09:11)
[2024-12-13] MEDS: CelecoXIB 400 MG CAP PO ONE (09:25)
[2024-12-13] MEDS ORDERED: MIDAZOLAM INJ 2 MG/2 ML VIAL As Ordered ONE (09:39)
[2024-12-13] MEDS ORDERED: LIDOCAINE 2% 100 MG/5 ML SDV (FOR ANES.) As Ordered ONE (09:40)
[2024-12-13] MEDS ORDERED: SUGAMMADEX SODIUM 500 MG/5 ML VIAL As Ordered ONE (09:40)
[2024-12-13] MEDS ORDERED: ROCURONIUM BROMIDE 50MG/5ML VIAL As Ordered ONE (09:40)
[2024-12-13] MEDS ORDERED: ONDANSETRON 4MG 2ML VIAL As Ordered ONE (09:40)
[2024-12-13] MEDS ORDERED: KETOROLAC 30 MG/ML 1 ML VIAL As Ordered ONE (09:40)
[2024-12-13] MEDS ORDERED: dexAMETHasone 4 MG/ML 1 ML VIAL As Ordered ONE (09:40)
[2024-12-13] MEDS: ceFAZolin SOD 2 GM IV ONCE IV ONE (10:30)
[2024-12-13] MEDS ORDERED: ACETAMINOPHEN 1000MG/100ML IV BAG As Ordered ONE (11:20)
[2024-12-13] MEDS: LIDOCAINE 1% SDV 30 ML VIAL As Ordered ONE (12:28)
[2024-12-13] MEDS ORDERED: HYDROmorphone HCL 2 MG/ML 1 ML VIAL As Ordered ONE (12:35)
[2024-12-13] MEDS ORDERED: ONDANSETRON 4MG 2ML VIAL IV PRN (12:40)
[2024-12-13] MEDS ORDERED: MORPHINE 2 MG/ML 1 ML VIAL IV PRN (12:40)
[2024-12-13 14:10] VITALS: BP 157/84; TEMP 97.5; O2SAT 96
== END 2024-12-13 14:14 | disposition home or self-care (01) ==
LOC: M SDC 08:31
PROVIDERS: ATTEND Surgery
DX: K42.0 Umbilical hernia with obstruction, without gangrene (principal); I11.9 Hypertensive heart disease without heart failure; E03.9 Hypothyroidism, unspecified; Z79.899 Other long term (current) drug therapy; Z79.890 Hormone replacement therapy; F17.210 Nicotine dependence, cigarettes, uncomplicated; K21.9 Gastro-esophageal reflux disease without esophagitis; Z79.82 Long term (current) use of aspirin; Z86.0100 Personal history of colon polyps, unspecified
CPT/HCPCS: 49594; C1781; J0131; J0665; J0666; J0690; J1100; J1171; J1885; J2250; J2405; J3010; S2900

== ENCOUNTER → 2025-03-06 | Outpatient (REF) | payer OTHER ==
[2025-03-06 18:33] LABS: PSA SCREENING 2.06 NG/ML (< 4.00)
[2025-03-06 18:37] LABS: ALT/SGPT 32 U/L (7.0-40); AST/SGOT 14 U/L (<34); CALCIUM LEVEL 9.1 MG/DL (8.5-10.1); CARBON DIOXIDE LEVEL 27 MMOL/L (20-31); CHLORIDE LEVEL 102 MMOL/L (98-107); CHOLESTEROL LEVEL 168 MG/DL (<200); CHOLESTEROL RISK RATIO 4.46 (<5); CREATININE FOR GFR 0.78 MG/DL (0.70-1.30); FREE T4 1.37 NG/DL (0.89-1.76); GLOMERULAR FILTRATION RATE > 90.0 (>56); LDL CHOLESTEROL 80.6 MG/DL (<100); MAGNESIUM LEVEL 2.1 MG/DL (1.8-2.4); NON-HDL-C 130.4 MG/DL; POTASSIUM SERUM 4.7 MMOL/L (3.5-5.1); SODIUM LEVEL 141 MMOL/L (136-145); TRIGLYCERIDES LEVEL 249 MG/DL (<150)
[2025-03-06 18:43] LABS: BASO # 0.1 10^3/uL (0.0-0.2); BASO % 0.8 % (0.0-1.0); EOS # 0.3 10^3/uL (0.0-0.5); EOS % 2.8 % (0.0-3.0); LYMPH # 2.8 10^3/uL (1.5-5.0); LYMPH % 30.2 % (24.0-44.0); MONO # 0.7 10^3/uL (0.0-0.8); MONO % 7.1 % (2.0-8.0); NEUTROPHILS # 5.4 10^3/uL (1.5-8.5); NEUTROPHILS % 58.5 % (36.0-66.0); PLATELET COUNT, AUTOMATED 349 10^3/uL (150-450)
== END ==
LOC: M SFHCCAPE 07:33
PROVIDERS: ATTEND Physician Assistant Medical
DX: K21.9 Gastro-esophageal reflux disease without esophagitis (principal); I10 Essential (primary) hypertension; E03.9 Hypothyroidism, unspecified; E78.1 Pure hyperglyceridemia; Z12.5 Encounter for screening for malignant neoplasm of prostate
CPT/HCPCS: 80053; 80061; 83735; 84439; 84443; 85025; G0103